=== PATIENT | male | born 1995 | race Caucasian/White ===

== ENCOUNTER 2021-07-12 16:21 | Emergency (ER) | payer SELFPAY ==
[~2021-07-12] VITALS: Ht 182.9 cm; Wt 83.0 kg
[2021-07-12 16:35] VITALS: BP 126/78
--- NOTE | 2021-07-12 16:35 | NUR ---
UPPER/LOWER LIP LACERATION S/P DOG BITE 1 HOUR AGO. UTD W/ TDAP. PLACED COMFORTABLY IN BED. VITALS CHECKED
[2021-07-12] MEDS ORDERED: TDAP [DIPH/PERTUSSIS/TET] 0.5 ML VIAL IM ONE ×2 (17:00→17:01)
--- NOTE | 2021-07-12 17:05 | NUR ---
EVERETT CROWE AT BEDSIDE FOR WOUND CLEANING.
--- NOTE | 2021-07-12 17:21 | NUR ---
AT BEDSIDE FOR SUTURING.
[2021-07-12] MEDS ORDERED: AMOX-427 PO (18:12)
--- NOTE | 2021-07-12 18:17 | NUR ---
Patient discharged to home in stable condition. Written and verbal after care instructions given. Patient verbalizes understanding of instruction.
== END 2021-07-12 18:18 | disposition home or self-care (01) ==
LOC: ER 16:23
DX: S01.511A Laceration without foreign body of lip, initial encounter (principal); W54.0XXA Bitten by dog, initial encounter; Y93.89 Activity, other specified; Y92.89 Other specified places as the place of occurrence of the external cause; Y99.8 Other external cause status
CPT/HCPCS: 90715

== ENCOUNTER 2021-07-17 09:55 | Emergency (ER) | payer SELFPAY ==
[~2021-07-17] VITALS: Ht 180.3 cm; Wt 81.6 kg
[~2021-07-17 09:55] MED LIST: AMOX-427 PO
--- NOTE | 2021-07-17 10:06 | NUR ---
PT CAME TO ER FOR SUTURE REMOVAL OF UPPER/LOWER LIP LAC REPAIRED 07/12/21. AAOX4, BREATHING EVEN AND UNLABORED. NO ACTIVE BLEEDING. SUTURE SITE IS DRY AND INTACT.
--- NOTE | 2021-07-17 10:27 | NUR ---
SUTURES BEING REMOVED
[2021-07-17 10:44] VITALS: BP 129/75
--- NOTE | 2021-07-17 10:44 | NUR ---
Patient discharged to home in stable condition. Written and verbal after care instructions given. Patient verbalizes understanding of instruction.
== END 2021-07-17 10:45 | disposition home or self-care (01) ==
LOC: ER 10:00
DX: S01.511D Laceration without foreign body of lip, subsequent encounter (principal); W54.0XXD Bitten by dog, subsequent encounter